=== PATIENT | female | born 1980 | race Caucasian/White ===

== ENCOUNTER 2017-07-12 10:52 | Emergency (ER) | payer OTHER ==
[2017-07-12 11:32] LABS: BASO # 0.1 10^3/uL (0.0-0.2); EOS # 0.1 10^3/uL (0.0-0.50); EOS % 0.6 % (0.0-3.0); HEMATOCRIT 42.3 % (36.0-47.0); HEMOGLOBIN 14.2 g/dl (12.0-16.0); IMMATURE GRANULOCYTE % 0.3 % (0-3.0); LYMPH # 1.6 10^3/uL (1.5-4.5); LYMPH % 20.7 % (24.0-44.0); MEAN CORPUSCULAR HEMOGLOBIN 29.7 pg (27.0-33.0); MEAN CORPUSCULAR HGB CONC 33.6 g/dl (32.0-36.5); MEAN CORPUSCULAR VOLUME 88.5 fl (80.0-96.0); MONO # 0.6 10^3/uL (0.0-0.8); MONO % 6.9 % (0.0-5.0); NEUTROPHILS # 5.6 10^3/uL (1.8-7.7); NEUTROPHILS % 70.5 % (36.0-66.0); PLATELET COUNT, AUTOMATED 298 10^3/uL (150-450); RED BLOOD COUNT 4.78 10^6/uL (4.00-5.40); RED CELL DISTRIBUTION WIDTH 13.1 % (11.5-14.5); WHITE BLOOD COUNT 7.9 10^3/uL (4.0-10.0)
[2017-07-12 11:56] LABS: HCG, SERUM QUANTITATIVE < 1.0 MIU/ML
[2017-07-12 11:58] LABS: ANION GAP 4 MEQ/L (8-16); BLOOD UREA NITROGEN 13 MG/DL (7-18); C REACTIVE PROTEIN QUANTITATIV < 0.30 MG/DL (0.00-0.30); CALCIUM LEVEL 8.8 MG/DL (8.5-10.1); CARBON DIOXIDE LEVEL 28 MEQ/L (21-32); CHLORIDE LEVEL 105 MEQ/L (98-107); CPK CREATINE PHOSPHOKINASE 182 U/L (26-192); CREATININE FOR GFR 0.82 MG/DL (0.55-1.30); GLOMERULAR FILTRATION RATE > 60.0 (>60); GLUCOSE, FASTING 95 MG/DL (70-100); POTASSIUM SERUM 4.4 MEQ/L (3.5-5.1); SODIUM LEVEL 137 MEQ/L (136-145); TROPONIN I < 0.02 NG/ML (< 0.10)
[2017-07-12 12:03] LABS: MB/CK RELATIVE INDEX 0.54 (< OR =4); THYROID STIMULATING HORMONE 0.724 uIU/ML (0.358-3.740)
== END 2017-07-12 13:01 | disposition home or self-care (01) ==
LOC: M ED 10:52
DX: M94.0 Chondrocostal junction syndrome [Tietze] (principal); I47.2 Ventricular tachycardia; J30.89 Other allergic rhinitis
CPT/HCPCS: 71046

== ENCOUNTER → 2019-08-19 | Outpatient (REF) | payer OTHER ==
[~2019-08-19] MED LIST: KETO10TAB PO
== END ==
LOC: M SFHCWAGY 17:53
PROVIDERS: ATTEND Nurse Practitioner Family
DX: R30.0 Dysuria (principal)

== ENCOUNTER → 2022-07-13 | Outpatient (CLI) | payer OTHER ==
[2022-07-13 15:45] LABS: BASO # 0.1 10^3/uL (0.0-0.2); BASO % 0.9 % (0.0-1.0); EOS # 0.1 10^3/uL (0.0-0.5); EOS % 1.5 % (0.0-3.0); HEMATOCRIT 46.3 % (36.0-47.0); HEMOGLOBIN 14.9 g/dl (12.0-15.5); LYMPH # 2.5 10^3/uL (1.5-5.0); LYMPH % 28.5 % (24.0-44.0); MEAN CORPUSCULAR HEMOGLOBIN 29.4 pg (27.0-33.0); MEAN CORPUSCULAR HGB CONC 32.2 g/dl (32.0-36.5); MEAN CORPUSCULAR VOLUME 91.5 fl (80.0-96.0); MONO # 0.8 10^3/uL (0.0-0.8); NEUTROPHILS # 5.3 10^3/uL (1.5-8.5); NEUTROPHILS % 59.9 % (36.0-66.0); PLATELET COUNT, AUTOMATED 319 10^3/uL (150-450); RED BLOOD COUNT 5.06 10^6/uL (4.00-5.40); WHITE BLOOD COUNT 8.8 10^3/uL (4.0-10.0)
[2022-07-13 16:18] LABS: ALBUMIN 4.2 G/DL (3.2-5.2); ALKALINE PHOSPHATASE 55 U/L (46-116); ALT/SGPT 22 U/L (7.0-40); AST/SGOT 16 U/L (<34); BILIRUBIN,DIRECT 0.2 MG/DL (<0.4); BILIRUBIN,TOTAL 0.6 MG/DL (0.3-1.2); BLOOD UREA NITROGEN 12 MG/DL (9-23); CALCIUM LEVEL 9.2 MG/DL (8.5-10.1); CARBON DIOXIDE LEVEL 30 MMOL/L (20-31); CHLORIDE LEVEL 105 MMOL/L (98-107); CHOLESTEROL LEVEL 173 MG/DL (<200); CHOLESTEROL RISK RATIO 3.15 (<5); CREATININE FOR GFR 0.89 MG/DL (0.55-1.30); GLOMERULAR FILTRATION RATE > 60.0 (>58); GLUCOSE, FASTING 80 MG/DL (60-100); HDL CHOLESTEROL 54.9 MG/DL (>40); LDL CHOLESTEROL 107.9 MG/DL (<100); NON-HDL-C 118.1 MG/DL; POTASSIUM SERUM 4.8 MMOL/L (3.5-5.1); SODIUM LEVEL 140 MMOL/L (136-145); TOTAL PROTEIN 7.1 G/DL (5.7-8.2); TRIGLYCERIDES LEVEL 51 MG/DL (<150)
[2022-07-13 16:20] LABS: T UPTAKE 35.4 % (22.5-37.0); THYROXINE (T4) 8.6 UG/DL (4.5-10.9)
[2022-07-13 16:21] LABS: THYROID STIMULATING HORMONE 1.336 uIU/ML (0.55-4.78)
[2022-07-13 17:01] LABS: HEMOGLOBIN A1c 4.9 % (4.0-6.0)
== END ==
LOC: M PLALAB 12:26
DX: F33.1 Major depressive disorder, recurrent, moderate (principal); F60.3 Borderline personality disorder

== ENCOUNTER → 2022-08-30 | Outpatient (REF) | payer OTHER | LOC: M WHC 10:34 → M SFHCWAGY 10:34 | PROVIDERS: ATTEND Nurse Practitioner Family | DX: Z12.4 Encounter for screening for malignant neoplasm of cervix (principal); Z01.419 Encounter for gynecological examination (general) (routine) without abnormal findings; Z77.9 Other contact with and (suspected) exposures hazardous to health | CPT/HCPCS: 77063; 77067; 87624; G0123 ==

== ENCOUNTER → 2022-09-19 | Outpatient (CLI) | payer OTHER | LOC: M WHC 08:22 | PROVIDERS: ATTEND Nurse Practitioner Family | DX: Z12.31 Encounter for screening mammogram for malignant neoplasm of breast (principal) ==

== ENCOUNTER → 2023-02-04 | Outpatient (REF) | payer OTHER | LOC: M SFHCWAGY 12:51 | PROVIDERS: ATTEND Nurse Practitioner Family | DX: R39.15 Urgency of urination (principal); N73.9 Female pelvic inflammatory disease, unspecified ==

== ENCOUNTER → 2023-12-31 | Outpatient (CLI) | payer OTHER | LOC: M WHC 09:03 | PROVIDERS: ATTEND Nurse Practitioner Family | DX: Z12.31 Encounter for screening mammogram for malignant neoplasm of breast (principal) ==

== ENCOUNTER → 2023-12-31 | Outpatient (REF) | payer OTHER | LOC: M SFHCWAGY 12:33 | PROVIDERS: ATTEND Nurse Practitioner Family | DX: R30.0 Dysuria (principal) ==

== ENCOUNTER → 2024-02-20 | Outpatient (REF) | payer OTHER ==
[2024-02-20 18:50] LABS: Trichomonas vaginalis (AMP) NOT DETECTED (NEGATIVE)
[2024-02-20 19:13] LABS: GC DNA AMPLIFICATION NEGATIVE (NEGATIVE)
== END ==
LOC: M SFHCWAGY 17:01
PROVIDERS: ATTEND Nurse Practitioner Family
DX: N73.9 Female pelvic inflammatory disease, unspecified (principal); N39.0 Urinary tract infection, site not specified

== ENCOUNTER → 2024-03-31 | Outpatient (REF) | payer OTHER ==
[2024-03-31 14:05] LABS: APPEARANCE, URINE CLEAR (CLEAR); BACTERIA, URINE AUTO NEGATIVE (NEGATIVE); BILIRUBIN, URINE AUTO NEGATIVE (NEGATIVE); BLOOD, URINE BLOOD 1+ (NEGATIVE); COLOR, URINE STRAW (YELLOW); GLUCOSE, URINE (UA) AUTO NEGATIVE (NEGATIVE); KETONE, URINE AUTO NEGATIVE (NEGATIVE); LEUKOCYTE ESTERASE, URINE AUTO NEGATIVE (NEGATIVE); NITRITE, URINE AUTO NEGATIVE (NEGATIVE); PROTEIN, URINE AUTO NEGATIVE (NEGATIVE); RBC, URINE AUTO 0 /HPF (0-3); SPECIFIC GRAVITY URINE AUTO 1.005 (1.002-1.035); SQUAMOUS EPITHELIAL CELL UR AU 0 /HPF (0-6); UROBILINOGEN, URINE AUTO 0.2 mg/dL (0.0-2.0); WBC, URINE AUTO 0 /HPF (0-3)
== END ==
LOC: M SMT 12:46
PROVIDERS: ATTEND Nurse Practitioner Family
DX: R39.15 Urgency of urination (principal)

== ENCOUNTER → 2024-06-02 | Outpatient (CLI) | payer OTHER | LOC: M WHC 08:12 | PROVIDERS: ATTEND Nurse Practitioner Family | DX: R10.2 Pelvic and perineal pain (principal) ==

== ENCOUNTER → 2024-12-09 | Outpatient (REF) | payer OTHER ==
[~2024-12-09] MED LIST changes: +BUPR150T12 PO; +BUSP10TA PO; +MAGN500T6 PO; +MAGNESIUM THREONATE; +MULTTAB61 PO; +SUPECAP7 PO; +VITA100093 PO; +[UNRECOGNIZED DRUG - CODE] XX
== END ==
LOC: M SFHCWAGY 17:12
PROVIDERS: ATTEND Obstetrics & Gynecology
DX: R39.9 Unspecified symptoms and signs involving the genitourinary system (principal)

== ENCOUNTER 2024-12-14 11:06 | Day surgery (SDC) | payer OTHER ==
[~2024-12-14] VITALS: Ht 167.6 cm; Wt 82.5 kg
[2024-12-14 11:39] LABS: PLATELET COUNT, AUTOMATED 284 10^3/uL (150-450)
[2024-12-14] MEDS ORDERED: NITR-67 PO (11:41)
[2024-12-14 12:05] LABS: ALT/SGPT 16 U/L (7.0-40); AST/SGOT 18 U/L (<34); CALCIUM LEVEL 9.4 MG/DL (8.5-10.1); CARBON DIOXIDE LEVEL 30 MMOL/L (20-31); CHLORIDE LEVEL 103 MMOL/L (98-107); CREATININE FOR GFR 0.78 MG/DL (0.55-1.30); GLOMERULAR FILTRATION RATE > 90.0 (>58); POTASSIUM SERUM 4.3 MMOL/L (3.5-5.1); SODIUM LEVEL 142 MMOL/L (136-145)
[2024-12-14] MEDS ORDERED: ROCURONIUM BROMIDE 50MG/5ML VIAL As Ordered ONE (12:30)
[2024-12-14] MEDS ORDERED: dexAMETHasone 4 MG/ML 1 ML VIAL As Ordered ONE (12:30)
[2024-12-14] MEDS ORDERED: MIDAZOLAM INJ 2 MG/2 ML VIAL As Ordered ONE (12:30)
[2024-12-14] MEDS ORDERED: ONDANSETRON 4MG 2ML VIAL As Ordered ONE (12:30)
[2024-12-14] MEDS ORDERED: LIDOCAINE 2% 100 MG/5 ML SDV (FOR ANES.) As Ordered ONE (12:30)
[2024-12-14] MEDS: ceFAZolin SOD 2 GM IV ONCE IV ONE (12:50)
[2024-12-14] MEDS: ACETAMINOPHEN *IV* 1,000 MG in IV 1 EA IV ONE (13:00)
[2024-12-14] MEDS ORDERED: ACETAMINOPHEN 1000MG/100ML IV BAG As Ordered ONE (13:03)
[2024-12-14] MEDS ORDERED: HYDROmorphone HCL 2 MG/ML 1 ML VIAL As Ordered ONE (13:06)
[2024-12-14] MEDS ORDERED: SUGAMMADEX SODIUM 500 MG/5 ML VIAL As Ordered ONE (13:18)
[2024-12-14] MEDS ORDERED: KETOROLAC 30 MG/ML 1 ML VIAL As Ordered ONE (13:43)
[2024-12-14] MEDS: METHYLENE BLUE 0.5% (5 MG/ML) 10 ML AMP As Ordered ONE (13:58)
[2024-12-14] MEDS ORDERED: LR 1,000 ML IV SCH (14:35)
[2024-12-14] MEDS: ONDANSETRON 4MG 2ML VIAL IV PRN (14:59)
[2024-12-14] MEDS: HYDROMORPHONE HCL 0.5 MG/0.5 ML SYRINGE IV PRN (15:00)
[2024-12-14 17:40] VITALS: BP 118/65; TEMP 97.8; O2SAT 97
== END 2024-12-14 18:02 | disposition home or self-care (01) ==
LOC: M SDC 11:06
PROVIDERS: ATTEND Obstetrics & Gynecology
DX: D25.9 Leiomyoma of uterus, unspecified (principal); N93.9 Abnormal uterine and vaginal bleeding, unspecified; R32 Unspecified urinary incontinence
CPT/HCPCS: 36415; 58571; 80053; 81025; 85027; 86850; 86900; 86901; 88307; J0131; J0665; J0690; J1100; J1171; J1885; J2250; J2405; J2765; J3010; Q9968; S2900

== ENCOUNTER → 2025-01-04 | Outpatient (REF) | payer OTHER ==
[~2025-01-04] MED LIST changes: +NITR-67 PO
== END ==
LOC: M SFHCWAGY 16:46
PROVIDERS: ATTEND Obstetrics & Gynecology
DX: R35.0 Frequency of micturition (principal)

== ENCOUNTER → 2025-02-02 | Outpatient (CLI) | payer OTHER | LOC: M WHC 09:07 | PROVIDERS: ATTEND Obstetrics & Gynecology | DX: Z12.31 Encounter for screening mammogram for malignant neoplasm of breast (principal) ==